=== PATIENT | female | born 1955 | race Caucasian/White ===

== ENCOUNTER 2018-02-03 04:33 | Emergency (ER) | payer MEDICARE, OTHER ==
[~2018-02-03] VITALS: Ht 157.5 cm; Wt 55.8 kg
[~2018-02-03 04:33] MED LIST: ALBU8.5H6 IH; BUSP10TA PO; HYDR12.58 PO; IBUP200C PO; LEXAPRO10 MG PO; LISI-338 PO; METH10SO PO; PANT40GR PO; PANT40TA3 PO; TIOT18CA IH
[2018-02-03 05:07] LABS: BASO # 0.1 x10^3/uL (0.0-0.2); BASO % 1 % (0-3); EOS # 0.3 x10^3/uL (0.0-0.7); EOS % 5 % (0-3); HEMATOCRIT 37.3 % (36.0-47.0); HEMOGLOBIN 12.8 g/dL (12.0-15.5); LYMPH # 3.1 x10^3/uL (1.0-4.8); LYMPH % 50 % (24-48); MEAN CORPUSCULAR HEMOGLOBIN 30 pg (25-35); MEAN CORPUSCULAR HGB CONC 34 g/dL (31-37); MEAN CORPUSCULAR VOLUME 88 fL (79-100); MONO # 0.5 x10^3/uL (0.0-1.1); MONO % 8 % (0-9); NEUT # 2.4 x10^3uL (1.8-7.7); NEUT % 37 % (31-73); PLATELET COUNT 276 x10^3/uL (140-400); RED BLOOD COUNT 4.25 x10^6/uL (3.50-5.40); RED CELL DISTRIBUTION WIDTH 14.2 % (11.5-14.5); WHITE BLOOD COUNT 6.3 x10^3/uL (4.0-11.0)
[2018-02-03 05:19] LABS: CALCIUM 9.4 mg/dL (8.5-10.1); CREATININE 1.1 mg/dL (0.6-1.0); GFR 50.5; POTASSIUM 3.6 mmol/L (3.5-5.1)
[2018-02-03 05:25] LABS: ALBUMIN 3.4 g/dL (3.4-5.0); ALBUMIN/GLOBULIN RATIO 0.9 (1.0-1.7); TOTAL BILIRUBIN 0.3 mg/dL (0.2-1.0); TOTAL PROTEIN 7.2 g/dL (6.4-8.2)
--- NOTE | 2018-02-03 05:50 | PHYS DOC ---
Past Medical History Past Medical History: COPD, High Cholesterol, Hypertension Additional Past Medical Histor: sleep apnea Past Surgical History: Tubal ligation Alcohol Use: Occasionally Drug Use: None Adult General Chief Complaint Chief Complaint: CHEST PAIN HPI HPI Patient is a 62 year old female history of hypertension who presents with palpitations, chest pain awakening her from sleep approximately 1 hour prior to ED arrival. Chest pain described as sharp, lasting several minutes at a time. Associated with mild dyspnea. Denies nausea, sweats. Denies cough, sore throat, fever chills or sweats. Reports intermittent bilateral leg paincramping for the past week mainly as cramping. No history of CAD. Previous stress test several years ago which was normal. No history of DVT or PE. Patient arrives by private vehicle and is currently asymptomatic.[] Review of Systems Review of Systems Review symptoms as per history of present illness. All other review symptoms are negative. All other systems were reviewed and found to be within normal limits, except as documented in this note. Allergies Allergies Allergies Coded Allergies Type Severity Reaction Last Updated Verified Sulfa (Sulfonamide Antibiotics) Allergy Intermediate 01/16/14 Yes alcohol Allergy Intermediate 01/15/14 Yes benzalkonium chloride Allergy Intermediate 01/15/14 Yes ciprofloxacin Allergy Intermediate 01/15/14 Yes ciprofloxacin HCl Allergy Intermediate 01/15/14 Yes lidocaine HCl Allergy Intermediate 01/15/14 Yes nisoldipine Allergy Intermediate 01/15/14 Yes Physical Exam Physical Exam Constitutional: Well developed, well nourished, no acute distress, non-toxic appearance. [] HENT: Normocephalic, atraumatic, bilateral external ears normal, oropharynx moist, no oral exudates, nose normal. [] Eyes: PERRLA, EOMI, conjunctiva normal, no discharge. [] Neck: Normal range of motion, no tenderness, supple, no stridor. [] Cardiovascular:Heart rate regular rhythm, no murmur [] Lungs & Thorax: Bilateral breath sounds clear to auscultation [] Abdomen: Bowel sounds normal, soft, no tenderness, no masses, no pulsatile masses. [] Skin: Warm, dry, no erythema, no rash. [] Back: No tenderness, no CVA tenderness. [] Extremities: No tenderness, no cyanosis, no clubbing, ROM intact, no edema. [] Neurologic: Alert and oriented X 3, normal motor function, normal sensory function, no focal deficits noted. [] Psychologic: Affect, anxious.. [] Current Patient Data Vital Signs Vital Signs Date Time Temp Pulse Resp B/P (MAP) Pulse Ox O2 Delivery O2 Flow Rate FiO2 02/03/18 06:53 60 16 140/63 (88) 96 Room Air 02/03/18 04:33 98.6 98.6 Lab Values Laboratory Tests Test 02/03/18 04:35 02/03/18 04:45 D-Dimer (Elyssa) 0.40 ug/mlFEU (0.00-0.50) White Blood Count 6.3 x10^3/uL (4.0-11.0) Red Blood Count 4.25 x10^6/uL (3.50-5.40) Hemoglobin 12.8 g/dL (12.0-15.5) Hematocrit 37.3 % (36.0-47.0) Mean Corpuscular Volume 88 fL (79-100) Mean Corpuscular Hemoglobin 30 pg (25-35) Mean Corpuscular Hemoglobin Concent 34 g/dL (31-37) Red Cell Distribution Width 14.2 % (11.5-14.5) Platelet Count 276 x10^3/uL (140-400) Neutrophils (%) (Auto) 37 % (31-73) Lymphocytes (%) (Auto) 50 % (24-48) H Monocytes (%) (Auto) 8 % (0-9) Eosinophils (%) (Auto) 5 % (0-3) H Basophils (%) (Auto) 1 % (0-3) Neutrophils # (Auto) 2.4 x10^3uL (1.8-7.7) Lymphocytes # (Auto) 3.1 x10^3/uL (1.0-4.8) Monocytes # (Auto) 0.5 x10^3/uL (0.0-1.1) Eosinophils # (Auto) 0.3 x10^3/uL (0.0-0.7) Basophils # (Auto) 0.1 x10^3/uL (0.0-0.2) Sodium Level 141 mmol/L (136-145) Potassium Level 3.6 mmol/L (3.5-5.1) Chloride Level 100 mmol/L (98-107) Carbon Dioxide Level 31 mmol/L (21-32) Anion Gap 10 (6-14) Blood Urea Nitrogen 14 mg/dL (7-20) Creatinine 1.1 mg/dL (0.6-1.0) H Estimated GFR (Cockcroft-Gault) 50.5 BUN/Creatinine Ratio 13 (6-20) Glucose Level 95 mg/dL (70-99) Calcium Level 9.4 mg/dL (8.5-10.1) Total Bilirubin 0.3 mg/dL (0.2-1.0) Aspartate Amino Transferase (AST) 18 U/L (15-37) Alanine Aminotransferase (ALT) 15 U/L (14-59) Alkaline Phosphatase 87 U/L (46-116) Troponin I Quantitative < 0.017 ng/mL (0.000-0.055) Total Protein 7.2 g/dL (6.4-8.2) Albumin 3.4 g/dL (3.4-5.0) Albumin/Globulin Ratio 0.9 (1.0-1.7) L Laboratory Tests 02/03/18 04:45 Laboratory Tests 02/03/18 04:45 EKG EKG [EKG: Normal sinus rhythm, no acute ST-T wave changes.] Radiology/Procedures Radiology/Procedures [CXR: interstitial markings] Course & Med Decision Making Course & Med Decision Making Pertinent Labs and Imaging studies reviewed. (See chart for details) [Chest pain, symptoms resolved prior to ED arrival. EKG, lab work nondiagnostic. Admission offered but declined, she prefers to follow-up with her PCP. She states she's had similar symptoms before and does suffer from anxiety and attributes her symptoms this morning to an anxiety attack. He does take buspirone for treatment of chronic anxiety. Dragon Disclaimer Dragon Disclaimer This electronic medical record was generated, in whole or in part, using a voice recognition dictation system. Departure Departure Impression: Primary Impression: Chest pain Disposition: 01 HOME, SELF-CARE Condition: GOOD Referrals: FRANCIS ARMENDARIZ MD (PCP) Patient Instructions: Chest Pain (Nonspecific), [id number] Additional Instructions: You were evaluated in the emergency department for chest pain palpitations. EKG , labs were performed and are nondiagnostic. The cause of your symptoms has not been determined. Please follow-up with your primary care physician early next week for reevaluation. In the meantime, CVA symptoms return or if you develop new or concerning symptoms return to the ED. FELICE HDZ DO Feb 03, 2018 05:50
[2018-02-03 06:53] VITALS: BP 140/63
--- NOTE | 2018-02-03 08:34 | RAD ---
EXAM: CHEST 1 VIEW. HISTORY: Shortness of breath. COMPARISON: January 16, 2014. FINDINGS: A frontal view of the chest is obtained. There are mild interstitial opacities in the bases and apices. The lungs are expanded to the 11th posterior ribs. There is no pneumothorax or pleural effusion. The heart is not enlarged. IMPRESSION: 1. Mild interstitial opacities may indicate mild pulmonary edema if acute, or interstitial lung disease if chronic. 2. Hyperinflation suggests chronic obstructive pulmonary disease. Electronically signed by: Delvis Parker MD (02/03/2018 8:31 AM) [facility]
--- NOTE | 2018-02-03 11:34 | EKG ---
[facility] [address] [place] [address] Test Date: 2018-02-03 Test Time: 04:28:52 Pat Name: BELGICA XAVIER Department: Room: Gender: F Legal Nurse Consultant: : [id number] Requested By: FELICE HDZ Order Number: [id number] Reading MD: Sp Mendez MD Measurements Intervals [place] Rate: 77 P: 73 WY: 176 QRS: 72 QRSD: 86 T: 64 QT: 382 QTc: 434 Interpretive Statements SINUS RHYTHM Electronically Signed On 02-05-2018 11:14:29 CDT by Sp Mendez MD
== END 2018-02-03 07:32 | disposition home or self-care (01) ==
LOC: ER 04:33
DX: R07.89 Other chest pain (principal); R00.2 Palpitations; R06.00 Dyspnea, unspecified; E78.00 Pure hypercholesterolemia, unspecified; J44.9 Chronic obstructive pulmonary disease, unspecified; I10 Essential (primary) hypertension; Z88.2 Allergy status to sulfonamides; Z88.1 Allergy status to other antibiotic agents; Z88.4 Allergy status to anesthetic agent; Z88.8 Allergy status to other drugs, medicaments and biological substances
CPT/HCPCS: 36415; 71045; 80053; 84484; 85025; 85379; 93005; 99285-25

== ENCOUNTER 2018-07-28 19:35 | Emergency (ER) | payer MEDICARE, OTHER ==
[~2018-07-28] VITALS: Ht 160 cm; Wt 51.3 kg
[2018-07-28 20:00] LABS: BILIRUBIN,URINE NEGATIVE (NEG); CLARITY,URINE CLEAR; COLOR,URINE YELLOW; NITRITE,URINE NEGATIVE (NEG); PH,URINE 6.5; PROTEIN,URINE NEGATIVE (NEG-TRACE); UROBILINOGEN,URINE 0.2 mg/dL (0.2 mg/dL)
[2018-07-28 20:25] LABS: SQUAMOUS EPITHELIAL CELL,UR FEW /LPF
[2018-07-28 20:26] LABS: BACTERIA,URINE 0 /HPF (0-FEW); RBC,URINE >40 /HPF (0-2)
[2018-07-28 21:24] LABS: BASO # 0.1 x10^3/uL (0.0-0.2); BASO % 1 % (0-3); EOS # 0.4 x10^3/uL (0.0-0.7); EOS % 5 % (0-3); HEMATOCRIT 37.5 % (36.0-47.0); HEMOGLOBIN 12.4 g/dL (12.0-15.5); LYMPH % 24 % (24-48); MEAN CORPUSCULAR HEMOGLOBIN 28 pg (25-35); MEAN CORPUSCULAR HGB CONC 33 g/dL (31-37); MEAN CORPUSCULAR VOLUME 86 fL (79-100); MONO # 0.6 x10^3/uL (0.0-1.1); MONO % 7 % (0-9); NEUT # 5.6 x10^3uL (1.8-7.7); NEUT % 64 % (31-73); PLATELET COUNT 448 x10^3/uL (140-400); RED BLOOD COUNT 4.37 x10^6/uL (3.50-5.40); RED CELL DISTRIBUTION WIDTH 14.8 % (11.5-14.5); WHITE BLOOD COUNT 8.6 x10^3/uL (4.0-11.0)
[2018-07-28 21:33] LABS: CALCIUM 8.9 mg/dL (8.5-10.1); CREATININE 0.8 mg/dL (0.6-1.0); GFR 72.7
[2018-07-28 21:39] LABS: ALBUMIN 2.8 g/dL (3.4-5.0); ALBUMIN/GLOBULIN RATIO 0.7 (1.0-1.7); MAGNESIUM 1.9 mg/dL (1.8-2.4); TOTAL BILIRUBIN 0.3 mg/dL (0.2-1.0)
[2018-07-28] MEDS ORDERED: CONTRAST GIVEN. MC PRN (22:30)
[2018-07-28] MEDS ORDERED: IOHEXOL 350 MG/ML 100 ML VIAL. IV ONE (22:30)
[2018-07-28] MEDS ORDERED: IV NORMAL SALINE 1000ML BAG 1,000 ML IV ONE (22:30)
--- NOTE | 2018-07-28 23:07 | RAD ---
CHEST PA LATERAL Technique: PA and lateral views of the chest were obtained. Clinical History: rt side pain increases with deep breath- lt side CP last night Comparison: February 03, 2018. Findings: The heart is mildly enlarged. Lungs are hyperinflated. There is reticular opacities of the lungs. The pleural margins are clear. Impression: 1. Mild cardiomegaly. 2. Chronic pulmonary fibrosis. 3. Stable appearance of the chest. Electronically signed by: Justen Berry III, MD (07/28/2018 11:04 PM) [facility]
--- NOTE | 2018-07-28 23:13 | RAD ---
CTA of chest with contrast and CT abdomen pelvis with contrast dated 07/28/2018. No comparison available. Clinical data indication: Right-sided chest pain and back pain since last night. TECHNIQUE: Contiguous axial imaging of the chest performed following the intravenous administration of 75 cc Omnipaque 350. Study was performed as dedicated PE protocol with thin cut coronal MIPS 3-D reconstruction. In addition, imaging of the abdomen and pelvis was performed in the portal venous phase. One or more of the following individualized dose reduction techniques were utilized for this examination: 1. Automated exposure control 2. Adjustment of the mA and/or kV according to patient size 3. Use of iterative reconstruction technique. FINDINGS: Contrast bolus is adequate. No evidence of central, lobar or segmental pulmonary embolus. Subsegmental branches are not well evaluated based on technique. Heart size is within normal limits. No pericardial effusion. Coronary artery calcifications. Mild ectasia of the ascending thoracic aorta measuring 3.8 cm transverse. No intimal flap. Incidental note is made of an aberrant right subclavian artery. No mediastinal, hilar or axillary lymphadenopathy. Thyroid gland unremarkable. Central airways are patent. There is moderate emphysema. There is an irregular nodular area of consolidation in the anterior right lower lobe that measures up to 2.3 cm in size. This abuts the pleural margin and abuts the major fissure. There is also some patchy increased density at the superior segment right lower lobe mild biapical scarring. No pleural effusion. No pneumothorax. There is mild diffuse bronchial wall thickening. The central airways are otherwise patent. Images of the abdomen show homogeneous attenuation of the liver and spleen. Pancreas, adrenal glands and kidneys are unremarkable. No hydronephrosis. Calcified stones in the gallbladder lumen. There is possible mild gallbladder wall thickening. Unopacified GI tract normal in caliber and contour. No focal bowel wall thickening. No inflammatory stranding in the mesentery. Appendix not clearly identified. No inflammatory changes in the right lower quadrant. The stomach is somewhat distended. Images of pelvis show nondistended urinary bladder. The uterus is surgically absent. No free fluid or lymphadenopathy. Bone windows show no acute findings. Multilevel spondylosis. IMPRESSION CHEST: 1. No evidence of central, lobar or segmental pulmonary embolus. 2. Indeterminate nodular area of consolidation in the right lower lobe, possibly rounded pneumonia. An underlying mass cannot be excluded. Suggest short-term follow-up imaging after treatment to ensure resolution. 3. There is an additional vague groundglass area of consolidation in the superior segment right lower lobe which should also be followed on subsequent imaging. 4. Moderate to severe emphysema with biapical scarring 5. Coronary artery calcifications and mild aortic ectasia. Impression abdomen pelvis: 1. No acute abnormality of abdomen or pelvis. 2. Distended stomach of uncertain etiology. Consider gastroparesis or gastritis. Gastric outlet obstruction not excluded. 3. Cholelithiasis 4. Status post hysterectomy. Electronically signed by: Tiago Philip MD (07/28/2018 11:09 PM) [facility]
[2018-07-28] MEDS ORDERED: CEFD300C PO (23:59)
[2018-07-29] VITALS: BP 147/72
--- NOTE | 2018-07-29 | PHYS DOC ---
Past Medical History Past Medical History: COPD, High Cholesterol, Hypertension Additional Past Medical Histor: sleep apnea Past Surgical History: Tubal ligation Additional Past Surgical Histo: RIGHT WRIST Alcohol Use: None Drug Use: None Adult General Chief Complaint Chief Complaint: FLANK PAIN HPI HPI 63-year-old female presents to ER via POV with complaints of right upper side pain which radiates into her back. She reports she has had rt upper abd pain with intermittent nausea/fatigue x1 mo. Pt reports pain became worse last night and she has felt SOA with increased pain w/deep breaths. She reports intermittent nausea denying any V/D or fever. She reports she has been having rt side rib/abd pain which radiates into rt side chest since onset of sxs last night. She also reports a few minute episode last night where she had left side CP. Denies any CP currently. Pt reports she has been told she needs to see a General Surg. for GB issues- but hasn't as of yet. Pt is on daily methadone. She denies urinary sxs or prod. cough. Pt denies recent travel. Pt is daily smoker. Review of Systems Review of Systems Constitutional: Denies fever or chills. Reports intermittent fatigue Eyes: Denies change in visual acuity, redness, or eye pain [] HENT: Denies nasal congestion or sore throat [] Respiratory: Reports dry cough with intermittent SOA when pain increases Cardiovascular: Reports rt side rib pain into rt side chest GI: Denies vomiting, bloody stools or diarrhea. Reports rt upper abd pain intermittent x1 mo with nausea : Denies dysuria or hematuria [] Musculoskeletal: Denies joint pain. Reports rt side back pain Integument: Denies rash or skin lesions [] Neurologic: Denies headache, focal weakness or sensory changes. Denies dizziness Endocrine: Denies polyuria or polydipsia [] All other systems were reviewed and found to be within normal limits, except as documented in this note. Current Medications Current Medications Current Medications Medications (Trade) Dose Ordered Sig/Neha Start Time Stop Time Status Last Admin Dose Admin Info (CONTRAST GIVEN -- Rx MONITORING) 1 each PRN DAILY PRN 07/28/18 22:30 07/29/18 00:18 DC Iohexol (Omnipaque 350 Mg/ml) 75 ml 1X ONCE 07/28/18 22:30 07/28/18 22:31 DC 07/28/18 22:30 75 ML Lidocaine (Lidoderm) 1 patch DAILY 07/29/18 09:00 07/29/18 09:00 DC Sodium Chloride 1,000 ml @ 1,000 mls/hr 1X ONCE 07/28/18 22:30 07/28/18 23:29 DC 07/28/18 22:37 1,000 MLS/HR Allergies Allergies Allergies Coded Allergies Type Severity Reaction Last Updated Verified Sulfa (Sulfonamide Antibiotics) Allergy Intermediate 01/16/14 Yes alcohol Allergy Intermediate 01/15/14 Yes benzalkonium chloride Allergy Intermediate 01/15/14 Yes ciprofloxacin Allergy Intermediate 01/15/14 Yes ciprofloxacin HCl Allergy Intermediate 01/15/14 Yes lidocaine HCl Allergy Intermediate 01/15/14 Yes nisoldipine Allergy Intermediate 01/15/14 Yes Physical Exam Physical Exam Constitutional: Well developed, well nourished, no acute distress, non-toxic appearance. Speaking in full sentences HENT: Normocephalic, atraumatic, bilateral ears normal, mucous membranes pink/dry- cigarette odor on breath, no oral exudates, nose normal. [] Eyes: Pupils equal, conjunctiva normal, no discharge. [] Neck: Normal range of motion, no tenderness, supple, no stridor/gross adenop athy. Trachea midline Cardiovascular: Heart rate regular rhythm, no murmur [] Lungs & Thorax: Bilateral breath sounds clear to auscultation- pt initially rel uctant to take deep breath during exam. When she did take a deep breath good air movement was heard throughout all lung diaz. Resp. equal/nonlabored. Tender rt lateral ribs- tenderness is diffuse. No palp. deformity/crepitus Abdomen: Bowel sounds normal, soft- no distention/rigidity, diffuse tenderness on palp. mid upper abd into rt side- no rebound tenderness, no masses, no pulsatile masses. [] Skin: Warm, dry, no erythema, no rash. [] Back: Diffuse tenderness on palp. of mid rt side back- no swelling/crepitus, no CVA tenderness. [] Extremities: No tenderness, no cyanosis, no clubbing, ROM intact, no edema. [] Neurologic: Alert and oriented X 3, normal motor function, normal sensory function, no focal deficits noted. [] Psychologic: Affect normal, judgement normal, mood normal. [] Current Patient Data Vital Signs Vital Signs Date Time Temp Pulse Resp B/P (MAP) Pulse Ox O2 Delivery O2 Flow Rate FiO2 07/29/18 00:00 78 18 147/72 (97) 95 Room Air 07/28/18 19:40 98.6 98.6 Lab Values Laboratory Tests Test 07/28/18 19:45 07/28/18 21:15 Urine Collection Type Unknown Urine Color Yellow Urine Clarity Clear Urine pH 6.5 Urine Specific [place] <=1.005 Urine Protein Negative mg/dL (NEG-TRACE) Urine Glucose (UA) Negative mg/dL (NEG) Urine Ketones (Stick) Negative mg/dL (NEG) Urine Blood Moderate (NEG) Urine Nitrite Negative (NEG) Urine Bilirubin Negative (NEG) Urine Urobilinogen Dipstick 0.2 mg/dL (0.2 mg/dL) Urine Leukocyte Esterase Trace (NEG) Urine RBC >40 /HPF (0-2) Urine WBC 1-4 /HPF (0-4) Urine Squamous Epithelial Cells Few /LPF Urine Bacteria 0 /HPF (0-FEW) White Blood Count 8.6 x10^3/uL (4.0-11.0) Red Blood Count 4.37 x10^6/uL (3.50-5.40) Hemoglobin 12.4 g/dL (12.0-15.5) Hematocrit 37.5 % (36.0-47.0) Mean Corpuscular Volume 86 fL (79-100) Mean Corpuscular Hemoglobin 28 pg (25-35) Mean Corpuscular Hemoglobin Concent 33 g/dL (31-37) Red Cell Distribution Width 14.8 % (11.5-14.5) H Platelet Count 448 x10^3/uL (140-400) H Neutrophils (%) (Auto) 64 % (31-73) Lymphocytes (%) (Auto) 24 % (24-48) Monocytes (%) (Auto) 7 % (0-9) Eosinophils (%) (Auto) 5 % (0-3) H Basophils (%) (Auto) 1 % (0-3) Neutrophils # (Auto) 5.6 x10^3uL (1.8-7.7) Lymphocytes # (Auto) 2.0 x10^3/uL (1.0-4.8) Monocytes # (Auto) 0.6 x10^3/uL (0.0-1.1) Eosinophils # (Auto) 0.4 x10^3/uL (0.0-0.7) Basophils # (Auto) 0.1 x10^3/uL (0.0-0.2) Sodium Level 140 mmol/L (136-145) Potassium Level 4.0 mmol/L (3.5-5.1) Chloride Level 100 mmol/L (98-107) Carbon Dioxide Level 35 mmol/L (21-32) H Anion Gap 5 (6-14) L Blood Urea Nitrogen 8 mg/dL (7-20) Creatinine 0.8 mg/dL (0.6-1.0) Estimated GFR (Cockcroft-Gault) 72.7 BUN/Creatinine Ratio 10 (6-20) Glucose Level 111 mg/dL (70-99) H Calcium Level 8.9 mg/dL (8.5-10.1) Magnesium Level 1.9 mg/dL (1.8-2.4) Total Bilirubin 0.3 mg/dL (0.2-1.0) Aspartate Amino Transferase (AST) 18 U/L (15-37) Alanine Aminotransferase (ALT) 11 U/L (14-59) L Alkaline Phosphatase 75 U/L (46-116) Troponin I Quantitative < 0.017 ng/mL (0.000-0.055) Total Protein 7.0 g/dL (6.4-8.2) Albumin 2.8 g/dL (3.4-5.0) L Albumin/Globulin Ratio 0.7 (1.0-1.7) L Lipase 92 U/L (73-393) Laboratory Tests 07/28/18 21:15 Laboratory Tests 07/28/18 21:15 Microbiology 07/28/18 Urine Culture - Final, Complete 07/28/18 Urine Culture Result 1 (CHALO) - Final, Complete EKG EKG EKG obtained 07/28/18 at [address] Covington Sinus rhythm Rate 81 No STEMI Radiology/Procedures Radiology/Procedures PROCEDURE: CHEST PA & LATERAL CHEST PA LATERAL Technique: PA and lateral views of the chest were obtained. Clinical History: rt side pain increases with deep breath- lt side CP last night Comparison: February 03, 2018. Findings: The heart is mildly enlarged. Lungs are hyperinflated. There is reticular opacities of the lungs. The pleural margins are clear. Impression: 1. Mild cardiomegaly. 2. Chronic pulmonary fibrosis. 3. Stable appearance of the chest. Electronically signed by: Ender Oliva III, MD (07/28/2018 11:04 PM) [facility] DICTATED and SIGNED BY: ENDER OLIVA III, MD DATE: 07/28/18 2304 PROCEDURE: CT ABD PELV W/ IV CONTRST ONLY CTA of chest with contrast and CT abdomen pelvis with contrast dated 07/28/2018. No comparison available. Clinical data indication: Right-sided chest pain and back pain since last night. TECHNIQUE: Contiguous axial imaging of the chest performed following the intravenous administration of 75 cc Omnipaque 350. Study was performed as dedicated PE protocol with thin cut coronal MIPS 3-D reconstruction. In addition, imaging of the abdomen and pelvis was performed in the portal venous phase. One or more of the following individualized dose reduction techniques were utilized for this examination: 1. Automated exposure control 2. Adjustment of the mA and/or kV according to patient size 3. Use of iterative reconstruction technique. FINDINGS: Contrast bolus is adequate. No evidence of central, lobar or segmental pulmonary embolus. Subsegmental branches are not well evaluated based on technique. Heart size is within normal limits. No pericardial effusion. Coronary artery calcifications. Mild ectasia of the ascending thoracic aorta measuring 3.8 cm transverse. No intimal flap. Incidental note is made of an aberrant right subclavian artery. No mediastinal, hilar or axillary lymphadenopathy. Thyroid gland unremarkable. Central airways are patent. There is moderate emphysema. There is an irregular nodular area of consolidation in the anterior right lower lobe that measures up to 2.3 cm in size. This abuts the pleural margin and abuts the major fissure. There is also some patchy increased density at the superior segment right lower lobe mild biapical scarring. No pleural effusion. No pneumothorax. There is mild diffuse bronchial wall thickening. The central airways are otherwise patent. Images of the abdomen show homogeneous attenuation of the liver and spleen. Pancreas, adrenal glands and kidneys are unremarkable. No hydronephrosis. Calcified stones in the gallbladder lumen. There is possible mild gallbladder wall thickening. Unopacified GI tract normal in caliber and contour. No focal bowel wall thickening. No inflammatory stranding in the mesentery. Appendix not clearly identified. No inflammatory changes in the right lower quadrant. The stomach is somewhat distended. Images of pelvis show nondistended urinary bladder. The uterus is surgically absent. No free fluid or lymphadenopathy. Bone windows show no acute findings. Multilevel spondylosis. IMPRESSION CHEST: 1. No evidence of central, lobar or segmental pulmonary embolus. 2. Indeterminate nodular area of consolidation in the right lower lobe, possibly rounded pneumonia. An underlying mass cannot be excluded. Suggest short-term follow-up imaging after treatment to ensure resolution. 3. There is an additional vague groundglass area of consolidation in the superior segment right lower lobe which should also be followed on subsequent imaging. 4. Moderate to severe emphysema with biapical scarring 5. Coronary artery calcifications and mild aortic ectasia. Impression abdomen pelvis: 1. No acute abnormality of abdomen or pelvis. 2. Distended stomach of uncertain etiology. Consider gastroparesis or gastritis. Gastric outlet obstruction not excluded. 3. Cholelithiasis 4. Status post hysterectomy. Electronically signed by: Tiago Philip MD (07/28/2018 11:09 PM) [facility] DICTATED and SIGNED BY: TIAGO PHILIP MD DATE: 07/28/18 2309 PROCEDURE: CT ANGIOGRAPHY CHEST CTA of chest with contrast and CT abdomen pelvis with contrast dated 07/28/2018. No comparison available. Clinical data indication: Right-sided chest pain and back pain since last night. TECHNIQUE: Contiguous axial imaging of the chest performed following the intravenous administration of 75 cc Omnipaque 350. Study was performed as dedicated PE protocol with thin cut coronal MIPS 3-D reconstruction. In addition, imaging of the abdomen and pelvis was performed in the portal venous phase. One or more of the following individualized dose reduction techniques were utilized for this examination: 1. Automated exposure control 2. Adjustment of the mA and/or kV according to patient size 3. Use of iterative reconstruction technique. FINDINGS: Contrast bolus is adequate. No evidence of central, lobar or segmental pulmonary embolus. Subsegmental branches are not well evaluated based on technique. Heart size is within normal limits. No pericardial effusion. Coronary artery calcifications. Mild ectasia of the ascending thoracic aorta measuring 3.8 cm transverse. No intimal flap. Incidental note is made of an aberrant right subclavian artery. No mediastinal, hilar or axillary lymphadenopathy. Thyroid gland unremarkable. Central airways are patent. There is moderate emphysema. There is an irregular nodular area of consolidation in the anterior right lower lobe that measures up to 2.3 cm in size. This abuts the pleural margin and abuts the major fissure. There is also some patchy increased density at the superior segment right lower lobe mild biapical scarring. No pleural effusion. No pneumothorax. There is mild diffuse bronchial wall thickening. The central airways are otherwise patent. Images of the abdomen show homogeneous attenuation of the liver and spleen. Pancreas, adrenal glands and kidneys are unremarkable. No hydronephrosis. Calcified stones in the gallbladder lumen. There is possible mild gallbladder wall thickening. Unopacified GI tract normal in caliber and contour. No focal bowel wall thickening. No inflammatory stranding in the mesentery. Appendix not clearly identified. No inflammatory changes in the right lower quadrant. The stomach is somewhat distended. Images of pelvis show nondistended urinary bladder. The uterus is surgically absent. No free fluid or lymphadenopathy. Bone windows show no acute findings. Multilevel spondylosis. IMPRESSION CHEST: 1. No evidence of central, lobar or segmental pulmonary embolus. 2. Indeterminate nodular area of consolidation in the right lower lobe, possibly rounded pneumonia. An underlying mass cannot be excluded. Suggest short-term follow-up imaging after treatment to ensure resolution. 3. There is an additional vague groundglass area of consolidation in the superior segment right lower lobe which should also be followed on subsequent imaging. 4. Moderate to severe emphysema with biapical scarring 5. Coronary artery calcifications and mild aortic ectasia. Impression abdomen pelvis: 1. No acute abnormality of abdomen or pelvis. 2. Distended stomach of uncertain etiology. Consider gastroparesis or gastritis. Gastric outlet obstruction not excluded. 3. Cholelithiasis 4. Status post hysterectomy. Electronically signed by: Tiago Philip MD (07/28/2018 11:09 PM) [facility] DICTATED and SIGNED BY: TIAGO PHILIP MD DATE: 07/28/18 7824 Course & Med Decision Making Course & Med Decision Making Pertinent Labs and Imaging studies reviewed. (See chart for details) 5300: Pt was evaluated in the ER for c/o 1 mo. ongoing intermittent sxs of cough, nausea, rt side abd pain, and fatigue. Pt was given IV flds and had lidoderm applied lateral rt ribs where she was focally tender- with her reporting some improvement in pain w/patch. Pt had EKG/labs/CT and xray obtained. Pt had stable VS and was afebrile. Discussed test results with patient and her family. EKG with no acute ST elevation/STEMI and troponin 0.043. WBCs NL at 8.6 no bands- LFTs/lipase NL; UA with mod. blood- neg. leuks. Discussed need for f/u with urology and/or PCP for re-eval. Pt denied urinary sxs and no renal stones/hydronephrosis reported on imaging. CT showing RLL pneum. neg. for PE- moderate emphysema reported- discussed w/sxs ongoing for past month plans were for home d/c and will provide Rx for Omnicef and she was advised to follow- up with her primary care physician in the next 2-3 days for reevaluation. Discussed her CT abd/pelvis results with cholelithiasis without surrounding inflammation and need for follow-up with general surgery- which pt reported she had been told this previously just hadn't scheduled an appt. Will provide referral information on discharge paperwork. Smoking cessation was discussed. Education provided on signs and symptoms to return to ER for. Pt remained nontoxic in appearance and in no distress at time of d/c discussion. Discharge instructions were discussed. Pt's case and plan of care was discussed with Dr. Covington. Stepan Disclaimer Stepan Disclaimer This electronic medical record was generated, in whole or in part, using a voice recognition dictation system. Departure Departure Impression: Primary Impression: CAP (community acquired pneumonia) Additional Impression: Gallstones Disposition: HOME, SELF-CARE Referrals: FRANCIS ARMENDARIZ MD (PCP) AARON POMPA MD, SABATO MD Patient Instructions: Cholelithiasis, Pneumonia, Adult Additional Instructions: Drink plenty of fluids. Avoid smoking. Follow-up with your primary doctor in 2-3 days for re-evaluation. You should call and schedule appointment with General Surgery for further evaluation on your gallstones. Scripts Cefdinir (CEFDINIR) 300 Mg Capsule 1 CAP PO BID, #20 CAP 0 Refills Prov: MYRA MCDERMOTT APRN 07/28/18 Problem Qualifiers MYRA MCDERMOTT APRN Jul 29, 2018 00:00
[2018-07-29] MEDS ORDERED: LIDOCAINE (700MG/PATCH) PATCH. TD SCH (09:00)
--- NOTE | 2018-07-29 09:43 | EKG ---
[facility] [address] [place] [address] Test Date: 2018-07-28 Test Time: 21:01:24 Pat Name: BELGICA XAVIER Department: Room: Gender: F [employer]: : 1955 Requested By: MYRA MCDERMOTT Order Number: [id number] Reading MD: Sp Mendez MD Measurements Intervals [place] Rate: 81 P: 71 [place]: 174 QRS: 69 QRSD: 76 T: 64 QT: 356 QTc: 414 Interpretive Statements SINUS RHYTHM Electronically Signed On 07-30-2018 14:36:00 CDT by Sp Mendez MD
== END 2018-07-29 00:10 | disposition home or self-care (01) ==
LOC: ER 19:35
DX: K80.80 Other cholelithiasis without obstruction (principal); J18.9 Pneumonia, unspecified organism; I10 Essential (primary) hypertension; E78.00 Pure hypercholesterolemia, unspecified; J44.9 Chronic obstructive pulmonary disease, unspecified; Z98.51 Tubal ligation status; Z88.2 Allergy status to sulfonamides; Z88.1 Allergy status to other antibiotic agents; Z88.4 Allergy status to anesthetic agent; Z88.8 Allergy status to other drugs, medicaments and biological substances
CPT/HCPCS: 36415; 71046; 71275; 74177; 80053; 81001; 83690; 83735; 84484; 85025; 87086; 93005; 99284; J7030; Q9967

== ENCOUNTER → 2019-08-30 | Outpatient (CLI) | payer MEDICARE ==
[~2019-08-30] MED LIST changes: +CEFD300C PO; +IOHEXOL 300 MG/ML 100ML VIAL. IV ONE; -PANT40TA3 PO; +PANT40TA77 PO
--- NOTE | 2019-08-30 15:55 | RAD ---
CT CHEST W/CONTRAST Indication: COPD. Emphysema. Exposure: One or more of the following individualized dose reduction techniques were utilized for this examination: 1. Automated exposure control 2. Adjustment of the mA and/or kV according to patient size 3. Use of iterative reconstruction technique. Technique: Standard imaging obtained after intravenous contrast administration. The ascending aorta measures 3.9 cm transverse diameter, compatible with mildly borderline ectasia is similar to previous exam. No evidence of aortic aneurysm. No evidence of aortic dissection. Note is made of an aberrant retroesophageal right subclavian artery. Thyroid appears unremarkable where visualized. No evidence of pathologic lymph node enlargement. Coronary artery calcifications are seen. No evidence of pericardial effusion. No significant pleural effusion. No significant esophageal abnormality. Emphysema is again identified. The previously seen opacity in the anterior right lower lobe has substantially improved with only mild residual hazy or groundglass opacity tearing as well as an irregular 8 mm pulmonary nodule now visualized. Another area of opacity in the superior segment of the right lower lobe has improved with only mild residual at this time. Biapical pleural and parenchymal thickening is again seen, bilateral, most compatible with pleural and parenchymal scarring. Small noncalcified pulmonary nodule in the right middle lobe, series 2, image 25, measures 3 mm, unchanged since the prior study. Small noncalcified nodule in the left upper lobe adjacent to the pleura, series 2, image 17 measures 5 mm, unchanged since prior exam. There is also some subpleural nodularity posterior to this which is unchanged. Several other tiny pulmonary nodules are seen without evidence of a new dominant pulmonary mass. No evidence of pneumothorax. Trachea and mainstem bronchi are patent. Mild degenerative spondylosis. No evidence of acute fracture or aggressive bone destruction. Scans through the upper abdomen are limited by technique but demonstrate no obvious acute abnormality. IMPRESSION: 1. Improvement in opacity/infiltrates in the right lower lobe since the previous exam with mild residual. An 8 mm irregular pulmonary nodule is now visualized in the area of the more inferior right lung infiltrate. Therefore, recommend additional CT chest follow-up in 6 months, as per revised Fleischner guidelines. 2. Additional small pulmonary nodules are stable since prior study. 3. Ascending aortic ectasia and coronary artery calcification are again seen. Electronically signed by: Tiago Munoz MD (08/30/2019 3:53 PM) [id number]
== END | disposition home or self-care (01) ==
LOC: CT 14:09
PROVIDERS: ATTEND Family Medicine
DX: J44.9 Chronic obstructive pulmonary disease, unspecified (principal); R93.5 Abnormal findings on diagnostic imaging of other abdominal regions, including retroperitoneum
CPT/HCPCS: 71260; Q9967

== ENCOUNTER 2021-01-15 15:20 | Emergency (ER) | payer MEDICARE ==
[~2021-01-15] VITALS: Ht 157.5 cm; Wt 48.5 kg
[~2021-01-15 15:20] MED LIST changes: -IOHEXOL 300 MG/ML 100ML VIAL. IV ONE; -LISI-338 PO; +LISI-517 PO
--- NOTE | 2021-01-15 16:04 | NUR ---
pt. was taken to CT at 1604
--- NOTE | 2021-01-15 16:21 | PHYS DOC ---
Past Medical History Past Medical History: COPD, High Cholesterol, Hypertension Additional Past Medical Histor: sleep apnea,OPOID ADDICTION (MARCIN CARDONA PROJECT MANAGEMENT INTERN) Past Surgical History: Tubal ligation Additional Past Surgical Histo: RIGHT WRIST (MARCIN CARDONA PROJECT MANAGEMENT INTERN) Smoking Status: Current Every Day Smoker Additional Information: 0.5 PPD Alcohol Use: None Drug Use: None (MARCIN CARDONA PRO[employer] MANAG[employer] INTERN) General Adult EDM: Chief Complaint: MULTIPLE COMPLAINTS HPI: HPI: Patient is a 65 year old female who presents with was on Skype call with her methadone clinic doctor and the doctor stated that her mouth was moving more. Patient states that she was very anxious this morning when talking to the doctor. Patient states that she has had intermittent left arm numbness and tingling off and on for the last 3 weeks or so. She states she occasionally has palpitations but this been going on for the last month or so. She denies any kind of injury. She is currently on methadone for an opioid addiction. She denies headache, dizziness, syncope, chest pain, shortness of air, abdominal pain, nausea, vomiting, diarrhea, fever, numbness tingling, focal weakness, vision change. Patient has a history of opioid addiction, tubal ligation, COPD, smoking, GERD, hypertension, high cholesterol, sleep apnea. (MARCIN CARDONA PRO[employer] MANAGEMENT INTERN) Review of Systems: Review of Systems: Constitutional: Denies fever or chills. [] Eyes: Denies change in visual acuity. [] HENT: Denies nasal congestion or sore throat. [] Respiratory: Denies cough or shortness of breath. [] Cardiovascular: Denies chest pain or edema. [] GI: Denies abdominal pain, nausea, vomiting, bloody stools or diarrhea. [] : Denies dysuria. [] Musculoskeletal: Denies back pain or joint pain. [] Integument: Denies rash. [] Neurologic: Denies headache, focal weakness or sensory changes. [] Endocrine: Denies polyuria or polydipsia. [] Lymphatic: Denies swollen glands. [] Psychiatric: Denies depression or anxiety. [] (MARCIN CARDONA [employer] INTERN) Heart Score: C/O Chest Pain: No HEART Score for Chest Pain: HEART Score for Chest Pain Response (Comments) Value History Slighlty/Non-Suspicious 0 ECG Normal 0 Age >45 - < 65 1 Risk Factors 1 or 2 Risk Factors 1 Troponin < Normal Limit 0 Total 2 Risk Factors: Risk Factors: DM, Current or recent (<one month) smoker, HTN, HLP, family history of CAD, obesity. Risk Scores: Score 0 - 3: 2.5% MACE over next 6 weeks - Discharge Home Score 4 - 6: 20.3% MACE over next 6 weeks - Admit for Clinical Observation Score 7 - 10: 72.7% MACE over next 6 weeks - Early Invasive Strategies [facility] Allergies: Allergies: Allergies Coded Allergies Type Severity Reaction Last Updated Verified Sulfa (Sulfonamide Antibiotics) Allergy Intermediate 01/16/14 Yes alcohol Allergy Intermediate 01/15/14 Yes benzalkonium chloride Allergy Intermediate 01/15/14 Yes ciprofloxacin Allergy Intermediate 01/15/14 Yes ciprofloxacin HCl Allergy Intermediate 01/15/14 Yes lidocaine HCl Allergy Intermediate 01/15/14 Yes nisoldipine Allergy Intermediate 01/15/14 Yes [facility] Physical Exam: PE: Constitutional: Well developed, well nourished, no acute distress, non-toxic appearance. [] HENT: Normocephalic, atraumatic, bilateral external ears normal, oropharynx moist, no oral exudates, nose normal. [] Eyes: PERRLA, EOMI, conjunctiva normal, no discharge. [] Neck: Normal range of motion, no tenderness, supple, no stridor. [] Cardiovascular:Heart rate regular rhythm, no murmur [] Lungs & Thorax: Bilateral breath sounds clear to auscultation [] Abdomen: Bowel sounds normal, soft, no tenderness, no masses, no pulsatile masses. [] Skin: Warm, dry, no erythema, no rash. [] Back: No tenderness, no CVA tenderness. [] Extremities: No tenderness, no cyanosis, no clubbing, ROM intact, no edema. [] Neurologic: Alert and oriented X 3, normal motor function, normal sensory function, no focal deficits noted. [] Psychologic: Affect normal, judgement normal, mood normal. [] ([facility] Current Patient Data: Vital Signs: Vital Signs Date Time Temp Pulse Resp B/P (MAP) Pulse Ox O2 Delivery O2 Flow Rate FiO2 01/15/21 15:45 98.5 93 17 160/79 (106) 96 Room Air 98.5 (MARCIN CARDONA APRN) EKG: EK and read by Dr. Medellin as sinus rhythm and no STEMI. (MARCIN CARDONA APRN) Radiology/Procedures: Radiology/Procedures: [] Impression: [facility] [address] [place] [address] IMAGING REPORT Signed PATIENT: BELGICA XAVIER ACCOUNT: [id number] : 1955 LOCATION: ER AGE: 65 SEX: F EXAM STATUS: REG ER ORD. PHYSICIAN: MARCIN CARDONA APRN REASON: FACIAL DROOP PROCEDURE: CT HEAD WO CONTRAST CT head without contrast PQRS statement: CT scans at this facility use dose reduction including either automated exposure control, iterative reconstructions, and /or weight based radiation dosing via mA and kV modification when appropriate to reduce radiation dose to as low as reasonably achievable. HISTORY: Facial droop. This is not a code stroke. FINDINGS: No intracranial hemorrhage, mass, hydrocephalus, extra-axial fluid collections or cortical infarction. There is a subtle right anterior frontal lobe white matter 1 cm hypoattenuating lesion which is indeterminate, statistically most likely a region of chronic microvascular ischemic injury or a demyelinating lesion, although an acute or subacute ischemic or demyelinating injury cannot be excluded by CT imaging, for which MR imaging provides greater accuracy. Orbits, mastoids and bones are unremarkable. IMPRESSION: No acute abnormality evident. The right frontal lobe demonstrates a nonspecific 1 cm subtle hypoattenuating white matter lesion, most likely an age- indeterminate microvascular ischemic injury or a demyelinating lesion. The acuity versus chronicity of this lesion could be further assessed with MR imaging. Electronically signed by: Ferdinand Ramirez MD (01/15/2021 4:19 PM) [facility] DICTATED and SIGNED BY: FERDINAND RAMIREZ MD DATE: 01/15/21 [id number] [facility] [address] [place] [address] IMAGING REPORT Signed PATIENT: BELGICA XAVIER ACCOUNT: [id number] : 1955 LOCATION: ER AGE: 65 SEX: F EXAM STATUS: REG ER ORD. PHYSICIAN: MARCIN CARDONA APRN REASON: PALPITATIONS PROCEDURE: PORTABLE CHEST 1V EXAM: CHEST 1 VIEW History: Palpitations COMPARISON: 07/11/2018 TECHNIQUE: Single portable radiograph of the chest FINDINGS: The cardiac silhouette is unremarkable. Mild prominent interstitial lung markings particularly in the upper lobes of the lung slightly increased since prior exam The costophrenic sulci are clear and well demarcated. IMPRESSION: Mild prominent interstitial lung markings particularly in the upper lobes of the lung slightly increased since prior exam could be mild infiltrates or chronic interstitial changes.. Electronically signed by: Connor Overton MD (01/15/2021 4:21 PM) [id number] DICTATED and SIGNED BY: CONNOR OVERTON MD DATE: 01/15/21 [id number] (MARCIN CARDONA APRN) Course & Med Decision Making: Course & Med Decision Making Pertinent Labs and Imaging studies reviewed. (See chart for details) See HPI. Alert and oriented x4. Speaks in full clear sentences. Ambulatory with a steady gait. Skin pink warm and dry. Lungs are clear to auscultation all lobes. Abdomen soft and nontender. Neurologically intact. All sensations are intact. Full range of motion of all extremities. Full strengths equal in all extremities. No extremity edema. NIH 0. Finger-nose finger intact. No nystagmus. I have called Dr Yoon about findings on CT scan and he states she can follow up with a MRI as a out patient. Patient is stable and in no distress. [] (MARCIN CARDONA APRN) Course & Med Decision Making I have reviewed and was available for consultation in the emergency department for this patient that was seen by midlevel provider. Agree with plan. Swapnil Medellin DO (SWAPNIL MEDELLIN DO) Stepan Disclaimer: Stepan Disclaimer: This electronic medical record was generated, in whole or in part, using a voice recognition dictation system. (MARCIN CARDONA APRN) NIHSS Stroke Scale NIH Stroke Scale: NIH Stroke Scale Response (Comments) Value Level of Consciousness: 0 Alert/Responsive 0 LOC Questions: 0 Answers both correctly 0 LOC Commands: 0 Performs both tasks 0 Best Gaze: 0 Normal 0 Visual: 0 No visual loss 0 Facial Palsy: 0 Normal, symmetrical 0 Motor - Left Arm 0 No drift 0 Motor - Right Arm 0 No drift 0 Motor - Left Leg 0 No drift 0 Motor: Right Leg 0 No drift 0 Limb Ataxia: 0 Absent 0 Sensory: 0 No loss 0 Best Language: 0 Normal 0 Dysathria: 0 Normal 0 Extinction and Inattention: 0 Normal 0 Total 0 Departure Departure Impression: Primary Impression: Cervical radiculopathy Disposition: HOME / SELF CARE / HOMELESS Condition: STABLE Referrals: FRANCIS ARMENDARIZ MD (PCP) Patient Instructions: Cervical Radiculopathy Additional Instructions: Follow-up with your primary care doctor soon as possible. Drink plenty of fluids. Take all your medications as prescribed. If you get having dizziness, severe headache, chest pain or shortness of air return emergency room. MARCIN CARDONA APRN Jan 15, 2021 16:21 SWAPNIL MEDELLIN DO Jan 15, 2021 17:45
--- NOTE | 2021-01-15 16:22 | RAD ---
CT head without contrast PQRS statement: CT scans at this facility use dose reduction including either automated exposure cont rol, iterative reconstructions, and /or weight based radiation dosing via mA and kV modification when appropriate to reduce radiation dose to as low as reasonably achievable. HISTORY: Facial droop. This is not a code stroke. FINDINGS: No intracranial hemorrhage, mass, hydrocephalus, extra-axial fluid collections or cortical infarction. There is a subtle right anterior frontal lobe white matter 1 cm hypoattenuating lesion wh ich is indeterminate, statistically most likely a region of chronic microvascular ischemic injury or a demyelinating lesion, although an acute or subacute ischemic or demyelinating injury cannot be excl uded by CT imaging, for which MR imaging provides greater accuracy. Orbits, mastoids and bones are un remarkable. IMPRESSION: No acute abnormality evident. The right frontal lobe demonstrates a nonspecific 1 cm subt le hypoattenuating white matter lesion, most likely an age-indeterminate microvascular ischemic injur y or a demyelinating lesion. The acuity versus chronicity of this lesion could be further assessed wi MR imaging. Electronically signed by: Mauricio Ramirez MD (01/15/2021 4:19 PM) [facility]
--- NOTE | 2021-01-15 16:27 | RAD ---
EXAM: CHEST 1 VIEW History: Palpitations COMPARISON: 07/11/2018 TECHNIQUE: Single portable radiograph of the chest FINDINGS: The cardiac silhouette is unremarkable. Mild prominent interstitial lung markings particularly in t he upper lobes of the lung slightly increased since prior exam The costophrenic sulci are clear and w ell demarcated. IMPRESSION: Mild prominent interstitial lung markings particularly in the upper lobes of the lung slightly increa sed since prior exam could be mild infiltrates or chronic interstitial changes.. Electronically signed by: Connor Overton MD (01/15/2021 4:21 PM) [id number]
[2021-01-15 16:43] LABS: BASO % 1 % (0-3); EOS # 0.1 x10^3/uL (0.0-0.7); EOS % 1 % (0-3); HEMATOCRIT 37.5 % (36.0-47.0); HEMOGLOBIN 12.9 g/dL (12.0-15.5); LYMPH # 1.4 x10^3/uL (1.0-4.8); LYMPH % 18 % (24-48); MEAN CORPUSCULAR HEMOGLOBIN 29 pg (25-35); MEAN CORPUSCULAR HGB CONC 34 g/dL (31-37); MEAN CORPUSCULAR VOLUME 84 fL (79-100); MONO # 0.5 x10^3/uL (0.0-1.1); MONO % 7 % (0-9); NEUT # 5.9 x10^3/uL (1.8-7.7); NEUT % 74 % (31-73); PLATELET COUNT 302 x10^3/uL (140-400); RED BLOOD COUNT 4.47 x10^6/uL (3.50-5.40); RED CELL DISTRIBUTION WIDTH 13.9 % (11.5-14.5); WHITE BLOOD COUNT 7.9 x10^3/uL (4.0-11.0)
[2021-01-15 16:59] LABS: CALCIUM 9.3 mg/dL (8.5-10.1); CREATININE 0.9 mg/dL (0.6-1.0); POTASSIUM 3.7 mmol/L (3.5-5.1)
[2021-01-15 17:06] LABS: ALBUMIN 3.5 g/dL (3.4-5.0); ALBUMIN/GLOBULIN RATIO 0.8 (1.0-1.7); TOTAL BILIRUBIN 0.5 mg/dL (0.2-1.0); TOTAL PROTEIN 7.7 g/dL (6.4-8.2)
--- NOTE | 2021-01-15 17:26 | EKG ---
[facility] [address] [place] [address] Test Date: 2021-01-15 Test Time: 16:29:41 Pat Name: BELGICA XAVIER Department: Room: Gender: F Cooker Tender: : 1955 Requested By: MARCIN CARDONA Order Number: [id number] Reading MD: Measurements Intervals Ranger Rate: 72 P: 77 TN: 174 QRS: 78 QRSD: 84 T: 62 QT: 376 QTc: 413 Interpretive Statements SINUS RHYTHM INCOMPLETE RIGHT BUNDLE BRANCH BLOCK OTHERWISE NORMAL ECG RI6.02 No previous ECG available for comparison
[2021-01-15 17:44] VITALS: BP 126/59
== END 2021-01-15 17:51 | disposition home or self-care (01) ==
LOC: ER 15:20
DX: M54.12 Radiculopathy, cervical region (principal); R00.2 Palpitations; J44.9 Chronic obstructive pulmonary disease, unspecified; E78.00 Pure hypercholesterolemia, unspecified; I10 Essential (primary) hypertension; F17.200 Nicotine dependence, unspecified, uncomplicated; Z88.2 Allergy status to sulfonamides; Z88.1 Allergy status to other antibiotic agents; Z88.4 Allergy status to anesthetic agent; Z88.8 Allergy status to other drugs, medicaments and biological substances
CPT/HCPCS: 36415; 70450; 71045; 80053; 83880; 84443; 84484; 85025; 93005; 99285

== ENCOUNTER → 2021-01-28 | Outpatient (CLI) | payer MEDICARE ==
[2021-01-15 17:44] VITALS: BP 126/59
[~2021-01-28] MED LIST changes: -LISI-517 PO; +LISI5TAB15 PO
--- NOTE | 2021-01-28 14:14 | RAD ---
MRI of the brain without contrast 01/28/2021 Clinical History: Facial droop. Nonspecific area of decreased attenuation seen within the right front al lobe white matter on recent CT scan of the head.. Technique: Unenhanced T1-weighted sagittal and axial, T2-weighted axial and coronal and FLAIR, gradie nt echo and diffusion-weighted axial images of the brain were obtained. Findings: Comparison is made to patient's CT scan of the head dated 01/15/2021. There is generalized parenchymal atrophy. Patchy and multiple small scattered areas of abnormally inc reased signal intensity is seen within the periventricular and subcortical white matter of both cereb ral hemispheres on the FLAIR and T2-weighted images consistent with areas of small vessel ischemic di sease. One of these areas corresponds to the abnormality seen on patient's CT scan of the head. No acute parenchymal abnormality is seen. No extra-axial fluid collection is noted. There is no MRI e vidence of acute ischemia/infarction. Mild mucosal thickening is seen scattered throughout ethmoid air cells bilaterally. Normal flow voids are seen within the major vascular structures surrounding the brain parenchyma. IMPRESSION: No acute parenchymal abnormality is seen. Electronically signed by: Hany Londono MD (01/28/2021 2:12 PM) [id number]
== END ==
LOC: MRI 11:37
PROVIDERS: ATTEND Family Medicine
DX: R93.0 Abnormal findings on diagnostic imaging of skull and head, not elsewhere classified (principal); J32.2 Chronic ethmoidal sinusitis
CPT/HCPCS: 70551